=== PATIENT | female | born 2000 | race Two or more races ===

== ENCOUNTER 2019-07-25 10:18 | Inpatient (IN) | payer OTHER ==
[~2019-07-25] VITALS: Ht 160 cm; Wt 3.2 kg
[2019-07-25] MEDS ORDERED: PRENATABS RX T1 EACH PO (11:51)
== END 2019-07-27 17:22 | disposition home or self-care (01) | DRG 788 ==
LOC: LDR 10:18 → O/R 20:28 → OB/GYN 07-26 14:47
PROVIDERS: ADMIT Obstetrics & Gynecology
PROC: 4A1HXFZ Monitoring of Products of Conception, Cardiac Rhythm, External Approach (ICD-10-PCS; 2019-07-25)
PROC: 3E033VJ Introduction of Other Hormone into Peripheral Vein, Percutaneous Approach (ICD-10-PCS; 2019-07-25)
PROC: 10D00Z1 Extraction of Products of Conception, Low, Open Approach (ICD-10-PCS; principal; 2019-07-25 17:00)
DX: O61.0 Failed medical induction of labor (principal); O62.1 Secondary uterine inertia; Z3A.39 39 weeks gestation of pregnancy; Z37.0 Single live birth